=== PATIENT | male | born 1990 | race Caucasian/White ===

== ENCOUNTER 2016-05-27 18:42 | Emergency (ER) | payer OTHER ==
[~2016-05-27] VITALS: Ht 180.3 cm; Wt 57.4 kg
[~2016-05-27 18:42] MED LIST: NAPROXEN500 MG PO; OXYCODONE-ACET1 EACH PO; PERCOCET 5/31 TABLET PO; VYVANSE50 MG PO
[2016-05-27 19:00] VITALS: BP 118/94
== END 2016-05-27 21:02 | disposition left against medical advice (07) ==
LOC: EME 18:42
DX: S20.212A Contusion of left front wall of thorax, initial encounter (principal); V18.4XXA Pedal cycle driver injured in noncollision transport accident in traffic accident, initial encounter; Y93.55 Activity, bike riding; F17.200 Nicotine dependence, unspecified, uncomplicated
CPT/HCPCS: 71010; 71020

== ENCOUNTER 2016-09-29 21:20 | Emergency (ER) | payer OTHER ==
[~2016-09-29] VITALS: Ht 180.3 cm; Wt 62.3 kg
[2016-09-29] MEDS ORDERED: NARCAN4 MG NS (22:32)
[2016-09-29 22:47] VITALS: BP 132/84
== END 2016-09-29 22:50 ==
LOC: EME → EDBD 21:20 → EME 22:50
DX: T40.1X1A Poisoning by heroin, accidental (unintentional), initial encounter (principal); J45.909 Unspecified asthma, uncomplicated; F17.200 Nicotine dependence, unspecified, uncomplicated
CPT/HCPCS: 99281; 99284